=== PATIENT | male | born 1985 | race Caucasian/White ===

== ENCOUNTER 2019-03-30 13:22 | Emergency (ER) | payer BC ==
[2019-03-30 13:56] VITALS: BP 120/77
--- NOTE | 2019-03-30 14:30 | UC ---
Hip/Pelvis Pain - HPI Summary HPI Summary: 33-year-old male presents with complaints of left hip pain. States pain started last evening while sitting on the couch. Describes pain as sharp. Worsens with any type of movement. He has been able to walk and bear weight although with discomfort. States he took ibuprofen 400 mg earlier today with improvement in the pain. Denies injury, fever, chills, bruising, erythema, numbness, or tingling. - History Of Current Complaint Chief Complaint: UCLowerExtremity Stated Complaint: HIP COMPLAINT Time Seen by Provider: 03/30/19 14:26 Hx Obtained From: Patient Pain Intensity: 4 - Allergies/Home Medications Allergies/Adverse Reactions: Allergies Allergy/AdvReac Type Severity Reaction Status Date / Time No Known Allergies Allergy Verified 03/30/19 13:56 Home Medications: Home Medications Statin 03/30/19 [History] PMH/Surg Hx/FS Hx/Imm Hx Previously Healthy: Yes - denies significant past medical history - Surgical History Surgical History: Yes Surgery Procedure, Year, and Place: HERNIA [facility]. LASER EYE SURGERY CORRECTIVE VISION - Family History Known Family History: Positive: Non-Contributory - Social History Occupation: Employed Full-time Lives: With Family Alcohol Use: Occasionally Substance Use Type: None Smoking Status (MU): Never Smoked Tobacco Review of Systems All Other Systems Reviewed And Are Negative: Yes Constitutional: Negative: Fever, Chills Skin: Negative: Bruising Respiratory: Positive: Negative Cardiovascular: Positive: Negative Gastrointestinal: Positive: Negative Genitourinary: Negative: Negative Motor: Negative: Weakness Neurovascular: Negative: Decreased Sensation Musculoskeletal: Positive: Arthralgia - See HPI, Decreased ROM. Negative: Edema Neurological: Positive: Negative Is Patient Immunocompromised?: No Physical Exam - Summary Physical Exam Summary: GENERAL APPEARANCE: Well developed, well nourished, alert and cooperative, and appears to be in no acute distress. CARDIAC: Normal S1 and S2. No S3, S4 or murmurs. Rhythm is regular. There is no peripheral edema, cyanosis or pallor. Extremities are warm and well perfused. Capillary refill is less than 2 seconds. Peripheral pulses intact. LUNGS: Clear to auscultation without rales, rhonchi, wheezing or diminished breath sounds. ABDOMEN: Positive bowel sounds. Soft, nondistended, nontender. No guarding or rebound. No masses or hepatosplenomegally. MUSKULOSKELETAL: Normal muscular development. Limping gait. EXTREMITIES: Left hip nontender and without gross deformity, ecchymosis, or erythema. Full ROM however reports pain with all movements. Circulation and sensation intact. SKIN: Skin normal color, texture and turgor with no lesions or eruptions. Triage Information Reviewed: Yes Vital Signs: Initial Vital Signs Temp 98.9 F 03/30/19 13:53 Pulse 72 03/30/19 13:53 Resp 16 03/30/19 13:53 BP 120/77 03/30/19 13:53 Pulse Ox 100 03/30/19 13:53 Vital Signs Reviewed: Yes Diagnostics - Radiology No standard instances Radiology Interpretation Completed By: Radiologist Summary of Radiographic Findings: Order Information: HIP LEFT 2 VIEWS AND PELVIS. Indication: LEFT posterior hip pain began last night. Comparison: No relevant prior exams available on the [facility] [place] [facility] [place]. Technique: AP pelvis and AP and frog-leg lateral views LEFT hip. Report: #. Normally located LEFT hip. Negative for LEFT hip or pelvic fracture or pelvic joint diastases. #. Both hips are remarkable for convexity at the anterolateral femoral head neck junctions consistent with cam bumps. Unremarkable acetabular morphology. Negative for significant hip joint space narrowing. #. Unremarkable soft tissue contours. IMPRESSION: #. 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 Hip Injury Course/Dx - Course Course Of Treatment: 33-year-old male presents with complaints of left hip pain. States pain started last evening while sitting on the couch. Describes pain as sharp. Worsens with any type of movement. He has been able to walk and bear weight although with discomfort. States he took ibuprofen 400 mg earlier today with improvement in the pain. Denies injury, fever, chills, bruising, erythema, numbness, or tingling. Afebrile. Vital signs stable. Patient was noted to have a limping gait and had a nontender left hip without gross deformity, ecchymosis, or erythema. He had full ROM however reported pain with all movements. Circulation and sensation were intact. Remainder of exam was normal. X-ray showed bilateral cam type femoroacetabular impingement morphology of the hips. Reviewed findings with the patient and discussed that this may be the cause of his pain although I cannot rule out other causes such as a sprain or strain. Recommending conservative treatment including [id number] analgesics and RICE. He is to follow-up with his primary care provider or orthopedic surgery in 7 days if symptoms persist. Anticipatory guidance and reporting symptoms are reviewed with the patient. Verbalizes understanding and plan of care. - Differential Dx/Diagnosis Differential Diagnosis/HQI/PQRI: Arthritis, Bursitis, Contusion, Dislocation, Fracture, Sprain Provider Diagnosis: Left hip pain Discharge ED - Sign-Out/Discharge Documenting (check all that apply): Patient Departure All imaging exams completed and their final reports reviewed: Yes - Discharge Plan Condition: Stable Disposition: HOME Patient Education Materials: Hip Pain (ED) Referrals: Fili Sinclair MD [Primary Care Provider] - Catrina Tovar MD [Medical Doctor] - Additional Instructions: The x-ray performed in the clinic today showed cam type femoroacetabular impingement morphology of both hips. This may be the cause of your pain. Rest the hip as much as possible. Apply ice to the affected area for 15-20 minutes at least 4 times a day to help with the pain and swelling. Take acetaminophen (Tylenol) or ibuprofen (Advil, Motrin) according to directions as needed for pain. Follow up with your primary care provider or orthopedic surgery in 7 days if symptoms do not improve. Seek immediate medical attention if you have severe pain not managed with pain medication, you are unable to walk or bear any weight, develop numbness or tingling in the leg, foot, or toes, or have any worsening of symptoms. - Billing Disposition and Condition Condition: STABLE Disposition: Home - Attestation Statements Provider Attestation: This patient was not seen by me. I was available for consult. Chart reviewed GISELE
== END 2019-03-30 15:00 | disposition home or self-care (01) ==
LOC: UCEAST 13:22
DX: M25.552 Pain in left hip (principal); M25.852 Other specified joint disorders, left hip; M25.851 Other specified joint disorders, right hip; R26.89 Other abnormalities of gait and mobility
CPT/HCPCS: 99211; G0463